=== PATIENT | female | born 1955 | race Caucasian/White ===

== ENCOUNTER 2016-08-14 16:33 | Outpatient (CLI) | payer OTHER, SELFPAY ==
[2016-08-14 17:34] LABS: #Eosinphils 0.2 thou/uL (0.0-0.7); #Lymphocytes 1.9 thou/uL (1.20-3.40); #Monocytes 0.7 thou/uL (0.11-0.59); #Neutrophils 3.7 thou/uL (1.40-6.50); %Basophils 0.7 % (0.0-1.0); %Eosinophils 2.6 % (0.0-10.0); %Monocytes 10.4 % (0.0-10.0); Hematocrit 39.1 % (36.0-47.0); Mean Platelet Volume 6.5 fL (7.4-10.4); White Blood Cell (WBC) Count 6.5 thou/uL (4.8-10.8)
[2016-08-14 18:01] LABS: ALT (SGPT) 15 U/L (0-55); AST (SGOT) 16 U/L (5-34); Alkaline Phosphatase 87 U/L (40-150); Anion Gap 13 mmol/L (10-20); BUN (Urea Nitrogen) 24 mg/dL (9.8-20.1); Bilirubin, Total 0.5 mg/dL (0.2-1.2); Calc. Creatinine Clearance 0 mL/min (70-130); Calcium 9.8 mg/dL (7.8-10.44); Carbon Dioxide 27 mmol/L (22-29); Chloride 105 mmol/L (98-107); Estimated GFR-MDRD 72; Globulin 2.8 g/dL (2.4-3.5); Protein, Total 7.1 g/dL (6.0-8.3)
== END 2016-08-14 16:34 | disposition home or self-care (01) ==
LOC: HPCALD 16:33
PROVIDERS: ATTEND Physician Assistant
DX: Z68.32 Body mass index [BMI] 32.0-32.9, adult (principal)
CPT/HCPCS: 36415; 80053; 84443; 85025

== ENCOUNTER 2016-08-15 10:16 | Outpatient (CLI) | payer OTHER | END 2016-08-15 10:17 | disposition home or self-care (01) | LOC: HPCALD 10:16 | PROVIDERS: ATTEND Physician Assistant | DX: Z68.32 Body mass index [BMI] 32.0-32.9, adult (principal) | CPT/HCPCS: 36415; 80061 ==

== ENCOUNTER 2018-11-06 09:17 | Outpatient (CLI) | payer OTHER ==
--- NOTE | 2018-11-06 17:48 | ULT ---
PELVIC ULTRASOUND WITH ENDOVAGINAL IMAGIN11/06/2018 TECHNIQUE: Ultrasonography of the pelvis is performed using both transabdominal and endovaginal probes. FINDINGS: The uterus appears normal and measures 4.8 x 2.8 x 3.3 cm. The endometrium is a normal 2 mm thick, t timmy there is a small amount of fluid in the endometrial cavity. The right ovary is 1.3 cm long and the left ovary is 1.7 cm. Blood flow is present in each. No cyst or mass is seen in either. IMPRESSION: Unremarkable pelvic ultrasound. POS: HOME
== END 2018-11-06 09:18 | disposition home or self-care (01) ==
LOC: BURULT 09:17
PROVIDERS: ATTEND Physician Assistant
DX: R10.2 Pelvic and perineal pain (principal)
CPT/HCPCS: 76856